=== PATIENT | female | born 1935 | race American Indian/Alaskan Native ===

== ENCOUNTER 2016-10-20 10:47 | Day surgery (SDC) | payer OTHER ==
[2016-10-20 12:25] LABS: Basophils % (Auto) 0.8 % (0.0-1.8); Hematocrit 38.2 % (30.3-42.9); Hemoglobin 12.2 gm/dl (10.1-14.3); Mean Corpuscular HGB Conc 32 % (30-34); Mean Corpuscular Hemoglobin 27 pg (28-32); Mean Corpuscular Volume 85 fl (79-97); Platelet Count 226 K/mm3 (140-440); Red Blood Count 4.48 M/mm3 (3.65-5.03); Red Cell Distribution Width 14.8 % (13.2-15.2); White Blood Count 9.2 K/mm3 (4.5-11.0)
[2016-10-20 12:34] LABS: Albumin 4.1 g/dL (3.9-5); Albumin/Globulin Ratio 1.1 %; Alkaline Phosphatase 108 units/L (35-129); Bilirubin,Total 0.3 mg/dL (0.1-1.2); Blood Urea Nitrogen 16 mg/dL (7-17); Carbon Dioxide 26 mmol/L (22-30); Chloride 101.4 mmol/L (98-107); Glucose 122 mg/dL (65-100); Sodium 142 mmol/L (137-145); Total Protein 7.8 g/dL (6.3-8.2)
[2016-10-20] MEDS ORDERED: ZOFRAN IV PRN (12:49)
[2016-10-20] MEDS ORDERED: MORPHINE IV PRN (12:49)
[2016-10-20] MEDS ORDERED: PEPCID PO NR (12:50)
--- NOTE | 2016-10-20 12:50 | Anesthesia Consultation ---
Anesthesia Consult and Med Hx Date of service: 10/20/16 - Airway Anesthetic Teeth Evaluation: Good ROM Head & Neck: Adequate Mental/Hyoid Distance: Adequate Mallampati Class: Class II Intubation Access Assessment: Probably Good - Pulmonary Exam CTA: Yes - Cardiac Exam Cardiac Exam: RRR - Pre-Operative Health Status ASA Pre-Surgery Classification: ASA3 Proposed Anesthetic Plan: General - Pulmonary Hx Smoking: Yes (STOPPED X 50 YRS- 1 PACK PER WEEK) Hx Asthma: No COPD: No Hx Pneumonia: No Hx Sleep Apnea: No (CARMELO PRE SCREEN LOW RISK) - Cardiovascular System Hx Hypertension: Yes (X 20 YRS) Hx Coronary Artery Disease: No - Central Nervous System Hx Seizures: No CVA: No - Endocrine Hx Renal Disease: No Hx Cirrhosis: No Hx Liver Disease: No Hx Non-Insulin Dependent Diabetes: Yes Hx Thyroid Disease: No - Hematic Hx Anemia: Yes - Other Systems Hx Cancer: Yes (colon) Hx Obesity: Yes
--- NOTE | 2016-10-20 12:50 | Anesthesia Day of Surgery ---
Anesthesia Day of Surgery - Day of Surgery Patient Examined: Yes Patient H&P Reviewed: Yes Patient is NPO: Yes
[2016-10-20 12:56] LABS: Alanine Aminotransferase 9 units/L (7-56); Anion Gap 19 mmol/L; Potassium 4.3 mmol/L (3.6-5.0)
[2016-10-20] MEDS ORDERED: ANCEF/STERILE WATER 2 GM/20 ML IV NR (13:00)
[2016-10-20] MEDS ORDERED: NACL 0.9% 250ML ONE (13:00)
[2016-10-20] MEDS ORDERED: NACL 0.9% 1000 ML 1,000 ML IV SCH (13:00)
[2016-10-20] MEDS ORDERED: DILAUDID ONE (13:11)
[2016-10-20] MEDS ORDERED: DIPRIVAN 10 MG/ML IV ONE (13:11)
[2016-10-20] MEDS ORDERED: XYLOCAINE MPF 2% ONE (13:14)
[2016-10-20] MEDS ORDERED: ZOFRAN ONE (13:35)
[2016-10-20] MEDS ORDERED: MARCAINE 0.25% INFILTRATI ONE (14:11)
[2016-10-20] MEDS ORDERED: HEPARIN 10,000 UNITS/10 ML 1,000 UNIT in NACL 0.9% 250ML 250 ML IR ONE (14:12)
--- NOTE | 2016-10-20 14:20 | Discharge Summary ---
Short Stay Discharge Plan Activity: advance as tolerated Diet: low fat Wound: per your surgeon's advice Follow up with: TAYLOR MTZ MD [Primary Care Provider] - 7 Days
--- NOTE | 2016-10-20 14:34 | Post Anesthesia Evaluation ---
- Post Anesthesia Evaluation Patient Participated: Yes Airway Patent: Yes Stable Respiratory Function: Yes Nausea/Vomiting: No Temp > 96.8F: Yes Pain Manageable: Yes Adequeate Hydration: Yes Anesthesia Complications: No Block Receding Appropriately: Not Applicable Patient on Ventilator: No
[2016-10-20] MEDS ORDERED: APRESOLINE IV PRN (14:40)
[2016-10-20] MEDS ORDERED: APRESOLINE ONE (14:45)
--- NOTE | 2016-10-20 15:16 | Fluoroscopy Report ---
AP chest History: Bkfwvv-h-[id number] placement, colon cancer. Findings: A limited AP fluoroscopic image of the chest was obtained during placement of a left subclavian Cxvbkz-u-Aksv. The distal tip terminates at the cavoatrial junction. There is no obvious pneumothorax. Impression: Kmtwsn-h-Vflb placement as described.
[2016-10-20] MEDS ORDERED: REGLAN IV PRN (15:41)
[2016-10-20 16:52] VITALS: BP 160/80
--- NOTE | 2016-10-20 21:50 | Admit Criteria Form ---
Admission Criteria Documentation: AMBULATORY SURGERY EXCEPTION CRITERIA Ambulatory Surgery Exception Criteria ( Place 'X' for any and all applicable criteria): Surgery or procedure performed on ambulatory basis may require inpatient stay for[A] ANY ONE of the following(1)(2)(3)(4)(5)(6)(7)(8)(9): [X] I. A preoperative situation, condition, or finding that warrants inpatient stay as indicated by ANY ONE of the following: [] a) Inpatient care needed because of severity of a disease or condition rather than the surgery (eg, severe cardiac or respiratory disease, severe infection) (15) (16 ) (17) (18) [] b) Emergent procedure (eg, angioplasty for acute ischemia)(19) [] c) Complex surgical approach or situation as indicated by ANY ONE of the following(3): [] i) Open approach needed instead of usual endoscopic, transcatheter, or other less invasive procedure [] ii) Difficult approach because of previous operation [] iii) Airway monitoring required after open neck procedures(20)(21) [] iv) Large mass requiring unusually extensive dissection [] v) Additional complicating feature requiring inpatient care (eg, drain management)(22(23): [X] d) Major surgery in a pt with high anesthetic risk as indicated by ANY ONE of the following (2)(3)(5)(7)(8): [X] i) ASA risk class III or higher (severe systemic disease impairing function) [D] [] ii) Advanced age (eg, older than 85 years)(14)(24) [] iii) Symptomatic heart failure(25) [] iv) Symptomatic asthma or COPD(8)(21) [] v) Morbid obesity with hemodynamic or respiratory problems(20)( 21)(26)(27) [] vi) Obstructive sleep apnea(20)(21) [] vii) Former premature infants who are younger than 60 weeks [] viii) High risk for severe postoperative abnormalities (eg, severe postoperative hypocalcemia after parathyroidectomy for severe hyperparathyroidism)(27)( 28) [] ix) Unstable angina(25) [] e) Drug-related risk requiring inpatient stay as indicated by ANY ONE of the following(5)(10)(14)(32)(33) [] i) Procedure requires discontinuing drugs or other therapy (eg , antiarrhythmic medication, antiseizure medication), which necessitates inpatient observation or treatment.(18)(31) [] ii) Major surgery and high risk drug use as indicated by ANY ONE of the following: [] 1) Active abuse of cocaine or similar drug [] 2) Monoamine oxidase inhibitor use [] 3) Other drug identified as posing risk [] f) Inadequate outpatient care situation as indicated by ANY ONE of the following(5)(10)(14)(32)(33) [] i) Patient lives remote from medical facility and procedure has urgent complication potential, and temporary nearby residence cannot be arranged [] ii) Patient will have postprocedure incapacitation and inadequate assistance at home, or alternative level of care cannot be arranged. [] iii) Patient will have long general anesthesia or procedure side effect resolution time, and competent person to stay with patient on first postoperative night at home or alternative level of care cannot be arranged. []iv) Other inadequate outpatient situation that cannot be handled by other means [] II. A perioperative event, condition, or finding that warrants inpatient stay as indicated by ANY ONE of the following (1)(2)(3): [] a) Inadequate physiologic recovery: cardiovascular, respiratory, or hemodynamic status not normal or near preoperative baseline(18) [] b) Hemodynamic instability [] c) Patient not alert with near normal or baseline mental status [] d) Temperature not normal or as expected and not appropriate for outpatient treatment of condition [] e) Ambulatory or appropriate activity level status not yet achieved post procedure [E](34)(35)(36) [] f) Operative site not appropriate (eg, unexpected or excessive drainage or bleeding) [] g) Postoperative effects not resolved or adequately managed (eg, significant pain or vomiting not appropriate for outpatient or next level of care)(10)(12) [] h) Complicating features requiring inpatient care as indicated by ANY ONE of the following(37): [] i) Severe complications of procedure (eg, bowel injury, airway compromise, vascular injury,severe hemorrhage) [] ii) Extensive (eg, dissection far beyond usual scope of procedure ) or prolonged (eg, 120 minutes beyond usual) surgery needed requiring inpatient postoperative care [] iii) Conversion to an open or complex procedure that requires inpatient care (eg, open vs laparoscopic cholecystectomy, abdominal vs vaginal hysterectomy)(38) [] iv) Comorbid condition or test result identified during or post procedure that requires inpatient care (7) [] v) Malignant hyperthermia(30) [] vi) Other complicating feature requiring inpatient care(22)(23) Inpatient stay may be needed until ALL of the following are present (1)(2)(3)(4) (5)(6)(10)(14)(33)(40): []a) Physiologic recovery: cardiovascular, respiratory, and hemodynamic status normal or near preoperative baseline []b) Hemodynamic stability []c) Patient alert, with near normal or baseline mental status []d) Temperature appropriate: patient afebrile or temperature appropriate for outpt treatment of condition []e) Activity level appropriate: ambulatory or appropriate activity level post procedure []f) Operative site appropriate as indicated by ALL of the following: []i) Site dry or with expected drainage []ii) Any blood noted is as expected for procedure. []g) Postoperative effects resolved or managed as indicated by ALL of the following: []i) Pain management appropriate for outpatient (or next level of) care(10) []ii) Minimal nausea and vomiting: if present, successfully treated with oral medication(12) []iii) Headache, dizziness, or drowsiness (if present) are mild. []h) Voiding status acceptable as indicated by ANY ONE of the following: []i) Voiding spontaneously []ii) No voiding but instructions given for follow-up in 6 to 8 hours []iii) Urinary catheter in place, and instructions given for follow-up []i) Complicating features requiring inpatient care manageable at a lower level of care(37) []j) Comorbid conditions manageable at a lower level of care(37) The original [employer] content created by [employer] has been revised. The portions of the content which have been revised are identified through the use of italic text or in bold, and [facility] [employer] has neither reviewed nor approved the modified material. All other unmodified content is copyright [employer]. Please see references footnoted in the original [employer] edition 2016 Admission Criteria Met: Yes
--- NOTE | 2016-10-20 22:11 | Discharge Summary ---
PREOPERATIVE DIAGNOSIS: Colon cancer, for insertion of subcutaneous port. POSTOPERATIVE DIAGNOSIS: Colon cancer, for insertion of subcutaneous port. HOSPITAL COURSE: This patient is a known case to have a colon cancer diagnosed about 5 years ago. She is to undergo chemotherapy by Dr. Cindy Black, who asked her to come and see me for port insertion. This was done today under general anesthesia . We took an x-ray of the area. It looks good. We had good aspiration of blood via the port percutaneously. At this point, she may go home to see me in office in about 10 days if she wants, otherwise, to start the chemotherapy. JOB# [id number] CATA/XAVIER LR
== END 2016-10-20 16:50 | disposition home or self-care (01) ==
LOC: OR 10:47
PROVIDERS: ATTEND Surgery
DX: C18.9 Malignant neoplasm of colon, unspecified (principal); I10 Essential (primary) hypertension; E11.9 Type 2 diabetes mellitus without complications; D64.9 Anemia, unspecified; E66.9 Obesity, unspecified; Z68.32 Body mass index [BMI] 32.0-32.9, adult; Z87.891 Personal history of nicotine dependence; Z79.899 Other long term (current) drug therapy; Z79.84 Long term (current) use of oral hypoglycemic drugs
CPT/HCPCS: 36415; 36561; 77001; 80053; 82962; 85025; C1788; J0360; J0690; J1170; J1644; J2405; J2704; J2765; J7030; J7050

== ENCOUNTER 2017-01-19 09:17 | Outpatient (CLI) | payer OTHER ==
--- NOTE | 2017-01-20 13:35 | PET Report ---
PET/CT:01/19/17 09:17:00 CLINICAL: Colon cancer restaging. RADIOPHARMACEUTICAL: 12.46mCi F18-FDG. COMPARISON: 11/10/16 PET/CT TECHNIQUE- Following intravenous injection of F-18 FDG and an approximately 60 minute uptake period, CT and PET images from the mid skull to the upper thighs were acquired with the patient in the fasted state. No contrast was administered. The CT protocol used for this PET CT study is designed for attenuation correction and anatomic localization of PET abnormalities. This transverse abdominal muscle nurse CT is not desired to produce and cannot replace, kpura-pd-wyj-art diagnostic CT scans with specific imaging protocols for different body parts and indications. Plasma glucose at the time of this test: 118g/dl. The standardized uptake values (SUV) are normalized to patient body weight and indicate the highest activity concentration (SUV max) in a given disease site. FINDINGS: Brain--Physiologic FDG uptake in the visualized regions of the brain. Neck--Physiologic FDG uptake . Chest--Physiologic FDG uptake in mediastinal blood pool and myocardium. Lungs--No abnormal uptake. The previously described non-FDG avid right lung nodules have nearly completely resolved. There is only a hint of residual nodular opacities and there are no new lung nodules. No mass. Pleura/pericardium--No abnormal uptake. Thoracic nodes--No abnormal uptake. Hepatobiliary--No abnormal uptake. Liver background SUV mean, as a reference for comparing FDG studies, is 3.95 compared to 3.4 on the last exam. No liver mass. Spleen--No abnormal uptake. Pancreas--No abnormal uptake. Adrenal Glands--No abnormal uptake. Kidneys/Ureters/Bladder--No abnormal uptake. Abdominopelvic Nodes--No abnormal uptake. Bowel/Peritoneum/Mesentery--the previously described FDG avid right mesenteric mass is smaller at 3.7 x 3.0 cm compared to 4.2 x 3.0 cm and demonstrates decreased FDG uptake within she be 5.3 compared to 5.7. Several adjacent FDG avid lymph nodes are smaller. The largest measures 1.4 x 1.0 cm within she the 3.8 compared to 5.3. This was not recognized as a lymph node on the last exam and was thought to be a loop of small bowel. No new lymphadenopathy. Pelvic organs--No abnormal uptake. Bones/Soft Tissues--No abnormal uptake. Other findings: The right anterior abdominal wall mass measures slightly smaller at 4.0 x 2.6 cm and FDG uptake has resolved with SUV 2.4 compared to 5.2 on the last exam. IMPRESSION- A partial response to treatment with near complete resolution of right lung nodules, a smaller right mesenteric metastasis with slightly less FDG uptake and metastatic intraperitoneal lymph nodes with decreased FDG uptake. A slightly smaller right anterior abdominal wall mass with resolution of pathologic FDG uptake.
== END 2017-01-19 09:18 | disposition home or self-care (01) ==
LOC: PET 09:17
DX: C78.6 Secondary malignant neoplasm of retroperitoneum and peritoneum (principal); C18.0 Malignant neoplasm of cecum
CPT/HCPCS: 78815; 82962; A9552